=== PATIENT | female | born 2000 | race Caucasian/White ===

== ENCOUNTER 2018-11-16 17:25 | Emergency (ER) | payer OTHER ==
[~2018-11-16] VITALS: Ht 152.4 cm; Wt 59.1 kg
[2018-11-16 17:35] VITALS: Ht 152.4 cm; Wt 59.1 kg
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
[2018-11-17 10:53] VITALS: BP 112/88; PULSE 75; RESP 18
== END 2018-11-17 15:11 | disposition home or self-care (01) ==
LOC: E/R 17:25
DX: F15.90 Other stimulant use, unspecified, uncomplicated (principal)
CPT/HCPCS: 99282